=== PATIENT | female | born 1980 | race Caucasian/White ===

== ENCOUNTER 2019-08-30 13:14 | Inpatient (IN) | payer MEDICAID, OTHER ==
[~2019-08-30] VITALS: Ht 172.7 cm; Wt 94.2 kg
[2019-08-30 14:07] LABS: Basophils # (auto) 0 uL; Basophils % (auto) 0.5 % (0.0-2.0); Eosinophils # (auto) 0 uL; Eosinophils % (auto) 0.4 % (0.0-7.0); Hematocrit 39.9 % (36.0-46.0); Hemoglobin 13.5 g/dL (12.2-16.2); Lymphocytes # (auto) 1.3 uL; Lymphocytes % (auto) 14.5 % (10.0-50.0); Mean Corpuscular Hemoglobin 31.9 pg (28.0-32.0); Mean Corpuscular Hgb Conc. 33.9 g/dL (32.0-36.0); Mean Corpuscular Volume 94.2 fL (80.0-100.0); Monocytes # (auto) 0.6 uL; Monocytes % (auto) 6.6 % (0.0-12.0); Neutrophils # (auto) 6.7 uL; Nucleated Red Blood Cells % 0.1 %; Platelet Count (auto) 279 10^3/uL (140-450); Red Blood Cells 4.23 10^6/uL (4.0-5.20); Red Cell Distribution Width 13.9 % (11.8-14.3); White Blood Cell 8.6 10^3/uL (4.4-10.8)
[2019-08-30 14:28] LABS: Albumin 3.7 g/dL (3.4-5.0); BUN/Creatinine Ratio 6.4; Calcium 8.5 mg/dL (8.5-10.1); Potassium 4.1 mmol/L (3.5-5.1)
[2019-08-30 14:31] LABS: Bilirubin, Total 0.5 mg/dL (0.2-1.0); Total Protein 7.7 g/dL (6.4-8.2)
[2019-08-30] MEDS ORDERED: SODIUM CHLORIDE 0.9% 1,000 ML IVB ONE ×2 (15:11→20:44)
[2019-08-30] MEDS ORDERED: THIAMINE 100mg/ml INJ (200mg/2ml VIAL) IV ONE (15:15)
[2019-08-30] MEDS ORDERED: LORazepam 2MG/ML-1ML VIAL IV ONE ×2 (15:15→16:15)
[2019-08-30 15:22] LABS: Urine Bacteria MANY /hpf (None Seen); Urine Blood Negative /uL (Negative); Urine Specific Gravity 1.004 (1.001-1.035); Urine WBC <1 /hpf (0 - 5)
[2019-08-30 15:28] LABS: Blood Alcohol < 3.0 mg/dL (0-5)
[2019-08-30 15:33] LABS: Salicylate < 1.7 mg/dL (2.8-20.0)
[2019-08-30 15:35] LABS: Acetaminophen < 2.0 ug/mL (10-30)
[2019-08-30 15:36] LABS: Amphetamine Screen, Urine NEGATIVE (NEGATIVE); Barbiturate Scree,Urine NEGATIVE (NEGATIVE); Benzodiazephine Screen, Urine NEGATIVE (NEGATIVE); Cannabinoid Screen, Urine POSITIVE (NEGATIVE); Cocaine Screen, Urine NEGATIVE (NEGATIVE); Opiate Scree,Urine NEGATIVE (NEGATIVE); Phencyclidine Screen, Urine NEGATIVE (NEGATIVE)
[2019-08-30] MEDS: SODIUM CHLORIDE 0.9% 1,000 ML IV SCH (20:44)
[2019-08-30] MEDS ORDERED: ONDANSETRON HCL 4 MG/2 ML VIAL IV ONE (20:45)
[2019-08-30] MEDS ORDERED: ONDANSETRON HCL 4 MG/2 ML VIAL IV PRN (20:45)
[2019-08-30] MEDS ORDERED: ACETAMINOPHEN 325 MG TAB PO PRN (20:45)
[2019-08-30] MEDS ORDERED: DOCUSATE SOD 100 MG CAP PO PRN (20:45)
[2019-08-30] MEDS ORDERED: FOLIC ACID 1 MG in D5W 5% 50 ML INJ SCH (20:45)
[2019-08-30] MEDS: LORazepam 2MG/ML-1ML VIAL IV SCH ×3 (20:45→21:44)
[2019-08-30] MEDS ORDERED: ESCI10TA53 PO (23:54)
[2019-08-31] MEDS: LORazepam 2MG/ML-1ML VIAL IV SCH ×6 (00:53→21:16)
[2019-08-31 05:00] VITALS: BP 124/85
[2019-08-31] MEDS: SODIUM CHLORIDE 0.9% 1,000 ML IV SCH ×2 (06:44→17:16)
[2019-08-31 09:19] LABS: Basophils # (auto) 0 uL; Basophils % (auto) 0.4 % (0.0-2.0); Eosinophils # (auto) 0.2 uL; Eosinophils % (auto) 3.8 % (0.0-7.0); Hematocrit 36.7 % (36.0-46.0); Hemoglobin 12.2 g/dL (12.2-16.2); Lymphocytes # (auto) 1.2 uL; Lymphocytes % (auto) 22.5 % (10.0-50.0); Mean Corpuscular Hemoglobin 31.9 pg (28.0-32.0); Mean Corpuscular Hgb Conc. 33.3 g/dL (32.0-36.0); Mean Corpuscular Volume 95.8 fL (80.0-100.0); Monocytes # (auto) 0.4 uL; Monocytes % (auto) 8.3 % (0.0-12.0); Neutrophils # (auto) 3.5 uL; Platelet Count (auto) 222 10^3/uL (140-450); Red Blood Cells 3.83 10^6/uL (4.0-5.20); Red Cell Distribution Width 13.7 % (11.8-14.3); White Blood Cell 5.4 10^3/uL (4.4-10.8)
[2019-08-31 09:31] LABS: BUN/Creatinine Ratio 3.4; Calcium 7.3 mg/dL (8.5-10.1); Potassium 3.2 mmol/L (3.5-5.1)
[2019-08-31] MEDS: MULTIPLE VITAMIN TAB PO SCH (09:34)
[2019-08-31] MEDS: FOLIC ACID 1 MG TAB PO SCH (09:34)
[2019-08-31 09:39] VITALS: BP 120/61
[2019-08-31] MEDS ORDERED: THIAMINE 100mg/ml INJ (200mg/2ml VIAL) IV SCH (10:00)
[2019-08-31 12:40] VITALS: BP 123/69
[2019-08-31] MEDS ORDERED: LORazepam 2MG/ML-1ML VIAL IM PRN (13:00)
[2019-08-31 16:19] VITALS: BP 132/76
[2019-08-31] MEDS ORDERED: POTASSIUM CHL 20MEQ/100ML 100 ML IV ONE (19:30)
[2019-08-31] MEDS ORDERED: MAGNESIUM SULFATE 1GM/100ML 100 ML IV ONE (19:30)
[2019-08-31] MEDS ORDERED: CALCIUM CHL 100MG/ML 1,000 MG in D5W 5% 100 ML IV ONE (19:30)
[2019-08-31] MEDS: HYDROcodone-ACET 5/325MG TAB PO PRN (20:22)
[2019-08-31 22:00] VITALS: BP 122/87
[2019-08-31] MEDS ORDERED: CALCIUM CHLOR(10%) 100MG/ML 10ML SYRINGE IV ONE (22:24)
[2019-09-01] MEDS: LORazepam 2MG/ML-1ML VIAL IV SCH ×4 (01:05→12:45)
[2019-09-01] MEDS: SODIUM CHLORIDE 0.9% 1,000 ML IV SCH ×2 (03:30→12:44)
[2019-09-01 05:32] VITALS: BP 132/91
[2019-09-01 06:57] LABS: Basophils # (auto) 0 uL (0-0.2); Basophils % (auto) 0.8 % (0.0-2.0); Eosinophils # (auto) 0.2 uL (0-0.8); Eosinophils % (auto) 5.8 % (0.0-7.0); Hematocrit 36.6 % (36.0-46.0); Hemoglobin 12.7 g/dL (12.2-16.2); Lymphocytes # (auto) 1.5 uL (0.4-5.4); Lymphocytes % (auto) 37.6 % (10.0-50.0); Mean Corpuscular Hgb Conc. 34.7 g/dL (32.0-36.0); Mean Corpuscular Volume 95.1 fL (80.0-100.0); Monocytes # (auto) 0.3 uL (0-1.3); Monocytes % (auto) 8.6 % (0.0-12.0); Neutrophils # (auto) 1.9 uL (1.6-8.6); Neutrophils % (auto) 47.2 % (37.0-80.0); Nucleated Red Blood Cells % 0.1 %; Platelet Count (auto) 214 10^3/uL (140-450); Red Blood Cells 3.85 10^6/uL (4.0-5.20); Red Cell Distribution Width 13.8 % (11.8-14.3)
[2019-09-01 07:07] LABS: Potassium 3.3 mmol/L (3.5-5.1)
[2019-09-01 07:20] LABS: Albumin 3.1 g/dL (3.4-5.0); BUN/Creatinine Ratio 1.8; Bilirubin, Total 0.6 mg/dL (0.2-1.0); Calcium 8.4 mg/dL (8.5-10.1); Magnesium 2.3 mg/dL (1.6-2.6); Phosphorus 3.4 mg/dL (2.5-4.90); Total Protein 6.7 g/dL (6.4-8.2)
[2019-09-01 08:50] VITALS: BP 113/74
[2019-09-01] MEDS: FOLIC ACID 1 MG TAB PO SCH (09:28)
[2019-09-01] MEDS: MULTIPLE VITAMIN TAB PO SCH (09:28)
[2019-09-01] MEDS ORDERED: THIAMINE HCL 100 MG TAB PO SCH (10:00)
[2019-09-01] MEDS ORDERED: POTASSIUM EFFERVESENT TAB 25 MEQ PO SCH (10:00)
[2019-09-01] MEDS ORDERED: ENOXAPARIN SOD 40 MG/0.4 ML SYRINGE SC SCH (10:00)
[2019-09-01] MEDS: HYDROcodone-ACET 5/325MG TAB PO PRN (11:43)
[2019-09-01] MEDS ORDERED: POTASSIUM EFFERVESENT TAB 25 MEQ PO ONE (11:45)
[2019-09-01 12:44] VITALS: BP 127/87
[2019-09-01 15:02] VITALS: BP 127/87
[2019-09-01 17:00] VITALS: BP 134/85
== END 2019-09-01 18:18 | disposition home or self-care (01) | DRG 775 ==
LOC: EDBD 13:14 → ER 13:21 → TELE 13:22 → TELE-EAST 22:52
PROVIDERS: ADMIT Hospitalist; ATTEND Internal Medicine
DX: F10.231 Alcohol dependence with withdrawal delirium (principal); F33.1 Major depressive disorder, recurrent, moderate; R45.851 Suicidal ideations; F41.1 Generalized anxiety disorder; E87.6 Hypokalemia; F41.0 Panic disorder [episodic paroxysmal anxiety]; G89.29 Other chronic pain; Z82.49 Family history of ischemic heart disease and other diseases of the circulatory system; Z87.891 Personal history of nicotine dependence; Z90.710 Acquired absence of both cervix and uterus; Z88.0 Allergy status to penicillin
CPT/HCPCS: 36415; 71045; 80048; 80053; 80061; 80307; 80320; 80329; 81001; 83735; 84100; 85025; 96361; 96374; 96375; G0378; J2405; J3480; J7060

== ENCOUNTER 2019-12-30 19:54 | Emergency (ER) | payer MEDICAID ==
[~2019-12-30] VITALS: Ht 170.2 cm; Wt 86.2 kg
[~2019-12-30 19:54] MED LIST: ESCI10TA53 PO
[2019-12-30] MEDS ORDERED: BACITRACIN TOP OINT 1 UD PKG TOP ONE (22:00)
[2019-12-30] MEDS ORDERED: KETOROLAC TROMETH 60MG/2ML VIAL IM ONE (22:00)
[2019-12-30] MEDS ORDERED: ONDANSETRON ODT 4 MG TAB PO ONE (22:00)
[2019-12-30 22:30] VITALS: BP 128/69
== END 2019-12-31 00:09 | disposition home or self-care (01) ==
LOC: ER 19:54
DX: S61.210A Laceration without foreign body of right index finger without damage to nail, initial encounter (principal); X58.XXXA Exposure to other specified factors, initial encounter; Y93.89 Activity, other specified; Y92.89 Other specified places as the place of occurrence of the external cause; Y99.8 Other external cause status
CPT/HCPCS: 12001; 73140; 96372; 99283; J1885; Q0162

== ENCOUNTER 2025-04-30 16:50 | Emergency (ER) | payer MEDICAID ==
[~2025-04-30] VITALS: Ht 172.7 cm; Wt 91.0 kg
[~2025-04-30 16:50] MED LIST changes: -ESCI10TA53 PO; +ESCI1TAB36 PO
[2025-04-30 17:15] VITALS: BP 137/87; PULSE 93; RESP 16; TEMP 97.9; O2SAT 96
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
== END 2025-04-30 17:21 | disposition home or self-care (01) ==
LOC: EEVIPCON 16:50 → ER 16:50
DX: Z04.3 Encounter for examination and observation following other accident (principal); F41.9 Anxiety disorder, unspecified; F32.A Depression, unspecified; Z90.710 Acquired absence of both cervix and uterus; Z88.0 Allergy status to penicillin; Z79.899 Other long term (current) drug therapy; V89.2XXA Person injured in unspecified motor-vehicle accident, traffic, initial encounter; Y93.89 Activity, other specified; Y92.410 Unspecified street and highway as the place of occurrence of the external cause; Y99.8 Other external cause status